=== PATIENT | male | born 1995 | race Caucasian/White ===

== ENCOUNTER 2022-11-13 17:48 | Emergency (ER) | payer OTHER, MEDICAID | END 2022-11-13 19:55 | disposition home or self-care (01) | LOC: VM.ED 17:48 | DX: S06.0X0A Concussion without loss of consciousness, initial encounter (principal); V89.2XXA Person injured in unspecified motor-vehicle accident, traffic, initial encounter; Y92.410 Unspecified street and highway as the place of occurrence of the external cause | CPT/HCPCS: 70450; 99283 ==